=== PATIENT | male | born 1955 | race African-American/Black ===

== ENCOUNTER 2022-10-25 09:06 | Emergency (ER) | payer MEDICARE, MEDICAID ==
[~2022-10-25] VITALS: Ht 188 cm; Wt 86.4 kg
[2022-10-25 09:22] VITALS: BP 113/81
[2022-10-25] MEDS ORDERED: ACETAMINOPHEN 325MG TABLET PO ONE (10:00)
[2022-10-25] MEDS ORDERED: CEPHALEXIN 250MG CAPSULE PO ONE (10:00)
[2022-10-25] MEDS ORDERED: CEPH500C2 MT (10:38)
[2022-10-25] MEDS ORDERED: ACET-2708 MT (10:38)
[2022-10-25] MEDS ORDERED: GABA-529 MT (10:38)
== END 2022-10-25 11:03 | disposition home or self-care (01) ==
LOC: ER 09:06
DX: L03.116 Cellulitis of left lower limb (principal); Z00.00 Encounter for general adult medical examination without abnormal findings
CPT/HCPCS: 99283